=== PATIENT | female | born 1990 | race African-American/Black ===

== ENCOUNTER 2016-11-15 14:19 | Emergency (ER) | payer OTHER ==
[~2016-11-15] VITALS: Ht 170.2 cm; Wt 63.5 kg
[2016-11-15] MEDS ORDERED: ONDANSETRON PF 4 MG/2 ML VIAL. IV ONE ×2 (15:15→17:15)
[2016-11-15] MEDS ORDERED: IV NORMAL SALINE 1,000ML 1,000 ML IV ONE (15:15)
[2016-11-15] MEDS: MORPHINE SULFATE 2 MG/ML DISP.SYRIN. IV PRN ×2 (15:22→16:25)
[2016-11-15 15:26] LABS: BASO % 0 % (0-3); EOS % 0 % (0-3); HEMATOCRIT 39.3 % (36.0-47.0); HEMOGLOBIN 13.2 g/dL (12.0-15.5); LYMPH # 0.6 x10^3/uL (1.0-4.8); LYMPH % 9 % (24-48); MEAN CORPUSCULAR HEMOGLOBIN 31 pg (25-35); MEAN CORPUSCULAR HGB CONC 34 g/dL (31-37); MEAN CORPUSCULAR VOLUME 93 fL (79-100); MONO # 0.3 x10^3/uL (0.0-1.1); MONO % 4 % (0-9); NEUT # 5.8 x10^3uL (1.8-7.7); NEUT % 86 % (31-73); PLATELET COUNT 181 x10^3/uL (140-400); RED BLOOD COUNT 4.21 x10^6/uL (3.50-5.40); RED CELL DISTRIBUTION WIDTH 13.2 % (11.5-14.5); WHITE BLOOD COUNT 6.7 x10^3/uL (4.0-11.0)
[2016-11-15 15:29] LABS: BILIRUBIN,URINE NEG (NEG); CLARITY,URINE HAZY; COLOR,URINE YELLOW; GLUCOSE,URINE NEG (NEG); NITRITE,URINE NEG (NEG); UROBILINOGEN,URINE 1 mg/dL (0.2 mg/dL)
[2016-11-15 15:30] LABS: BACTERIA,URINE FEW /HPF (0-FEW); SQUAMOUS EPITHELIAL CELL,UR FEW /LPF
[2016-11-15 15:39] LABS: ALBUMIN 4.4 g/dL (3.4-5.0); ALBUMIN/GLOBULIN RATIO 1.2 (1.0-1.7); CALCIUM 9.4 mg/dL (8.5-10.1); CREATININE 0.9 mg/dL (0.6-1.0); GFR 93.1; TOTAL PROTEIN 8.2 g/dL (6.4-8.2)
[2016-11-15] MEDS ORDERED: IOHEXOL 300 MG/ML 75 ML VIAL. IV ONE (16:10)
--- NOTE | 2016-11-15 16:39 | RAD ---
CT scan of the abdomen and pelvis with contrast 11/15/2016 Clinical history: Severe right-sided abdominal pain with nausea and vomiting for 3 days. Technique: After the intravenous administration of 75 cc of Omnipaque 300, contiguous, 5 mm axial sections were obtained to the abdomen and pelvis. One or more of the following individualized dose reduction techniques were utilized for this study: 1. Automated exposure control. 2. Adjustment of the mA and/or kV according to patient size. 3. Use of iterative reconstruction technique. Findings: Images through the lung bases are within normal limits. The liver, spleen, pancreas, adrenal glands and kidneys are within normal limits. The abdominal aorta tapers normally. The gallbladder is well-distended. No free fluid or free air is seen within the abdomen. Mild air and fluid distention of both small and large bowel loops is seen without definite evidence of bowel obstruction. A moderate amount of stool is seen within the rectum and sigmoid colon. The appendix is partially visualized and is within normal limits. Images through the pelvis demonstrate the urinary bladder distended with urine. A 2 cm rounded low-attenuation structure is seen in the left adnexa. This likely represents a dominant follicle. No free fluid is seen. The osseous structures are grossly intact. Impression: No acute abnormality is seen.
[2016-11-15 17:02] VITALS: BP 100/50
[2016-11-15] MEDS ORDERED: ONDA4TAB10 SL (17:04)
--- NOTE | 2016-11-15 17:04 | PHYS DOC ---
Past History Past Medical History: Anemia Past Surgical History: Other Alcohol Use: None Drug Use: None Adult General Chief Complaint Chief Complaint: ABDOMINAL PAIN HPI HPI Patient is a 25 year old F who presents with upper abdominal pain that is dull and fluctuates in intensity. Her pain is associated with nausea and vomiting. She feels that her pain is worse with eating. She does not note alleviating factors. She does not have any other associated symptoms Review of Systems Review of Systems Constitutional: Denies fever or chills [] Eyes: Denies change in visual acuity, redness, or eye pain [] HENT: Denies nasal congestion or sore throat [] Respiratory: Denies cough or shortness of breath [] Cardiovascular: No additional information not addressed in HPI [] GI: Neg except HPI : Denies dysuria or hematuria [] Musculoskeletal: Denies back pain or joint pain [] Integument: Denies rash or skin lesions [] Neurologic: Denies headache, focal weakness or sensory changes [] Endocrine: Denies polyuria or polydipsia [] Family History Family History reviewed Current Medications Current Medications Current Medications Medications (Trade) Dose Ordered Sig/Kimberly Start Time Stop Time Status Last Admin Dose Admin Iohexol (Omnipaque 300 Mg/ml) 75 ml 1X ONCE 11/15/16 16:10 11/15/16 16:11 DC 11/15/16 16:06 75 ML Morphine Sulfate (Morphine 2mg Syringe) 2 mg PRN Q30MIN PRN 11/15/16 15:00 11/15/16 16:25 2 MG Ondansetron HCl (Zofran) 4 mg 1X ONCE 11/15/16 15:15 11/15/16 15:16 DC 11/15/16 15:15 4 MG Sodium Chloride 1,000 ml @ 1,000 mls/hr 1X ONCE 11/15/16 15:15 11/15/16 16:14 DC 11/15/16 15:15 1,000 MLS/HR Allergies Allergies Allergies Coded Allergies Type Severity Reaction Last Updated Verified ketorolac Allergy Unknown 11/15/16 Yes Physical Exam Physical Exam Constitutional: Well developed, well nourished, no acute distress, non-toxic appearance. [] HENT: Normocephalic, atraumatic, bilateral external ears normal, oropharynx moist, no oral exudates, nose normal. [] Eyes: PERRLA, EOMI, conjunctiva normal, no discharge. [] Neck: Normal range of motion, no tenderness, supple, no stridor. [] Cardiovascular:Heart rate regular rhythm, no murmur [] Lungs & Thorax: Bilateral breath sounds clear to auscultation [] Abdomen: Bowel sounds normal, soft, no masses, no pulsatile masses. [] Mild generalized TTP Skin: Warm, dry, no erythema, no rash. [] Back: No tenderness, no CVA tenderness. [] Extremities: No tenderness, no cyanosis, no clubbing, ROM intact, no edema. [] Neurologic: Alert and oriented X 3, normal motor function, normal sensory function, no focal deficits noted. [] Psychologic: Affect normal, judgement normal, mood normal. [] Current Patient Data Vital Signs Vital Signs Date Time Temp Pulse Resp B/P (MAP) Pulse Ox O2 Delivery O2 Flow Rate FiO2 11/15/16 16:25 18 Room Air 11/15/16 14:38 99.2 102 99 Lab Results Laboratory Tests Test 11/15/16 14:50 11/15/16 15:01 11/15/16 15:13 Urine Collection Type Unknown Urine Color Yellow Urine Clarity Hazy Urine pH 5.5 Urine Specific [place] 1.025 Urine Protein 30 mg/dl (NEG-TRACE) Urine Glucose (UA) Neg mg/dL (NEG) Urine Ketones (Stick) >=160 mg/dL (NEG) Urine Blood Small (NEG) Urine Nitrite Neg (NEG) Urine Bilirubin Neg (NEG) Urine Urobilinogen Dipstick 1 mg/dL (0.2 mg/dL) Urine Leukocyte Esterase Neg (NEG) Urine RBC 1-2 /HPF (0-2) Urine WBC 1-4 /HPF (0-4) Urine Squamous Epithelial Cells Few /LPF Urine Bacteria Few /HPF (0-FEW) Urine Mucus Marked /LPF POC Urine HCG, Qualitative hcg negative (Negative) White Blood Count 6.7 x10^3/uL (4.0-11.0) Red Blood Count 4.21 x10^6/uL (3.50-5.40) Hemoglobin 13.2 g/dL (12.0-15.5) Hematocrit 39.3 % (36.0-47.0) Mean Corpuscular Volume 93 fL (79-100) Mean Corpuscular Hemoglobin 31 pg (25-35) Mean Corpuscular Hemoglobin Concent 34 g/dL (31-37) Red Cell Distribution Width 13.2 % (11.5-14.5) Platelet Count 181 x10^3/uL (140-400) Neutrophils (%) (Auto) 86 % (31-73) H Lymphocytes (%) (Auto) 9 % (24-48) L Monocytes (%) (Auto) 4 % (0-9) Eosinophils (%) (Auto) 0 % (0-3) Basophils (%) (Auto) 0 % (0-3) Neutrophils # (Auto) 5.8 x10^3uL (1.8-7.7) Lymphocytes # (Auto) 0.6 x10^3/uL (1.0-4.8) L Monocytes # (Auto) 0.3 x10^3/uL (0.0-1.1) Eosinophils # (Auto) 0.0 x10^3/uL (0.0-0.7) Basophils # (Auto) 0.0 x10^3/uL (0.0-0.2) Sodium Level 138 mmol/L (136-145) Potassium Level 4.0 mmol/L (3.5-5.1) Chloride Level 103 mmol/L (98-107) Carbon Dioxide Level 24 mmol/L (21-32) Anion Gap 11 (6-14) Blood Urea Nitrogen 9 mg/dL (7-20) Creatinine 0.9 mg/dL (0.6-1.0) Estimated GFR (Cockcroft-Gault) 93.1 BUN/Creatinine Ratio 10 (6-20) Glucose Level 80 mg/dL (70-99) Lactic Acid Level 0.9 mmol/L (0.4-2.0) Calcium Level 9.4 mg/dL (8.5-10.1) Total Bilirubin 1.0 mg/dL (0.2-1.0) Aspartate Amino Transferase (AST) 13 U/L (15-37) L Alanine Aminotransferase (ALT) 13 U/L (14-59) L Alkaline Phosphatase 60 U/L (46-116) Total Protein 8.2 g/dL (6.4-8.2) Albumin 4.4 g/dL (3.4-5.0) Albumin/Globulin Ratio 1.2 (1.0-1.7) Lipase 73 U/L (73-393) Radiology/Procedures Radiology/Procedures CT abd/pelvis Impressions: Neg as read by radiology Course & Med Decision Making Course & Med Decision Making Pertinent Labs and Imaging studies reviewed. (See chart for details) Dragon Disclaimer Dragon Disclaimer This chart was dictated in whole or in part using Voice Recognition software in a busy, high-work load, and often noisy Emergency Department environment. It may contain unintended and wholly unrecognized errors or omissions. Departure Departure: Impression: Primary Impression: Gastroenteritis Disposition: HOME, SELF-CARE Condition: STABLE Referrals: PCPBILLY (PCP) Patient Instructions: Viral Gastroenteritis Additional Instructions: Clari was seen in the emergency room for abdominal pain, nausea and vomiting. No emergency medical condition was found on history or physical exam. She did have normal labs and imaging with the exception of protein in her urine. Her symptoms are most consistent with a gastroenteritis. She was given IV fluids and nausea medication. She was able to take oral fluids. She was advised to follow-up with her primary care doctor in the next 3-5 days for further management. She was advised to return to the emergency room if she develops new or worsening symptoms. Scripts Ondansetron (ZOFRAN ODT) 4 Mg Tab.rapdis 15 TAB SL Q8HRS, #15 TAB Prov: JAVON HAYES MD 11/15/16 JAVON HAYES MD Nov 15, 2016 17:04
== END 2016-11-15 17:17 | disposition home or self-care (01) ==
LOC: ER 14:19
DX: K52.9 Noninfective gastroenteritis and colitis, unspecified (principal); Z86.2 Personal history of diseases of the blood and blood-forming organs and certain disorders involving the immune mechanism; Z88.8 Allergy status to other drugs, medicaments and biological substances
CPT/HCPCS: 36415; 74177; 80053; 81001; 81025; 83605; 83690; 85025; 96361; 96374; 96375; 96376; 99285; J2270; J2405; Q9967; J7030

== ENCOUNTER 2017-02-28 02:29 | Emergency (ER) | payer OTHER ==
[~2017-02-28] VITALS: Ht 170.2 cm; Wt 63.5 kg
[~2017-02-28 02:29] MED LIST: ONDA4TAB10 SL
[2017-02-28 03:24] LABS: BARBITURATES NEG (NEG); BENZODIAZEPINES NEG (NEG); CANNABINOIDS POS (NEG); COCAINE POS (NEG); METHADONE NEG (NEG); OPIATES NEG (NEG); PHENCYCLIDINE NEG (NEG)
[2017-02-28 03:25] LABS: BILIRUBIN,URINE NEG (NEG); CLARITY,URINE HAZY; COLOR,URINE YELLOW; GLUCOSE,URINE NEG (NEG)
[2017-02-28 03:26] LABS: BACTERIA,URINE FEW /HPF (0-FEW); NITRITE,URINE NEG (NEG); RBC,URINE OCC /HPF (0-2); SQUAMOUS EPITHELIAL CELL,UR FEW /LPF; UROBILINOGEN,URINE 0.2 mg/dL (0.2 mg/dL)
[2017-02-28 03:27] LABS: ALBUMIN 4.3 g/dL (3.4-5.0); CALCIUM 8.9 mg/dL (8.5-10.1); DIRECT BILIRUBIN 0.1 mg/dL (0.0-0.2); GFR 81.7; POTASSIUM 3.4 mmol/L (3.5-5.1); TOTAL BILIRUBIN 0.3 mg/dL (0.2-1.0)
[2017-02-28] MEDS ORDERED: IV RINGERS SOLUTION,LACTATED 1,000 ML IV SCH (03:30)
[2017-02-28] MEDS ORDERED: oxyCODONE/APAP 5/325 1 TAB TABLET PO ONE (03:30)
[2017-02-28] MEDS ORDERED: ONDANSETRON PF 4 MG/2 ML VIAL. IV ONE (03:30)
[2017-02-28] MEDS ORDERED: FAMOTIDINE 20 MG/2 ML VIAL IVP ONE (03:30)
[2017-02-28 03:33] LABS: AMPHETAMINE/METHAMPHETAMINE NEG (NEG)
[2017-02-28] MEDS ORDERED: IV NORMAL SALINE 50ML 50 ML ONE (03:52)
[2017-02-28] MEDS ORDERED: cefTRIAXone SODIUM 1 GM VIAL IV ONE (03:52)
[2017-02-28 03:56] LABS: BASO % 0 % (0-3); EOS % 0 % (0-3); HEMATOCRIT 37.3 % (36.0-47.0); HEMOGLOBIN 12.6 g/dL (12.0-15.5); LYMPH % 16 % (24-48); MEAN CORPUSCULAR HEMOGLOBIN 32 pg (25-35); MEAN CORPUSCULAR HGB CONC 34 g/dL (31-37); MEAN CORPUSCULAR VOLUME 95 fL (79-100); MONO # 0.3 x10^3/uL (0.0-1.1); MONO % 5 % (0-9); NEUT # 4.9 x10^3uL (1.8-7.7); NEUT % 79 % (31-73); PLATELET COUNT 213 x10^3/uL (140-400); RED BLOOD COUNT 3.91 x10^6/uL (3.50-5.40); RED CELL DISTRIBUTION WIDTH 13.8 % (11.5-14.5); WHITE BLOOD COUNT 6.2 x10^3/uL (4.0-11.0)
--- NOTE | 2017-02-28 04:21 | ED.ADGEN ---
Past History Past Medical History: Anemia Past Surgical History: Other Alcohol Use: None Drug Use: None Adult General Chief Complaint Chief Complaint ".. I have chills, fever.. and diarrhea...nauseated..bad.." HPI HPI Patient is a 26 year old female who presents with above complaints of generalized malaise, myalgia, diarrhea x 3 tonight and fever. Pt. is travel or ill contacts. Patient denies any intake of bad food. She has not taken a flu shot this year. Review of Systems Review of Systems Constitutional: Hx fever or chills [] Eyes: Denies change in visual acuity, redness, or eye pain [] HENT: Hx. nasal congestion or sore throat [] Respiratory: Denies cough or shortness of breath [] Cardiovascular: No additional information not addressed in HPI [] GI: Hx. abdominal pain, nausea, & diarrhea [] : Denies dysuria or hematuria [] Musculoskeletal: Denies back pain or joint pain [] Integument: Denies rash or skin lesions [] Neurologic: Denies headache, focal weakness or sensory changes [] Endocrine: Denies polyuria or polydipsia [] All other systems were reviewed and found to be within normal limits, except as documented in this note. Family History Family History Non- contributory Current Medications Current Medications Current Medications Medications (Trade) Dose Ordered Sig/Kimberly Start Time Stop Time Status Last Admin Dose Admin Ceftriaxone Sodium 1 gm/ Sodium Chloride 50 ml @ 100 mls/hr 1X ONCE 02/28/17 04:30 02/28/17 05:00 DC 02/28/17 03:50 100 MLS/HR Ceftriaxone Sodium (Rocephin) 1 gm STK-MED ONCE 02/28/17 03:52 02/28/17 03:53 DC Famotidine (Pepcid Vial) 20 mg 1X ONCE 02/28/17 03:30 02/28/17 03:31 DC 02/28/17 03:19 20 MG Lactated Ringer's 1,000 ml @ 1,000 mls/hr Q1H 02/28/17 03:30 02/28/17 03:30 DC 02/28/17 03:19 1,000 MLS/HR Ondansetron HCl (Zofran) 4 mg 1X ONCE 02/28/17 03:30 02/28/17 03:31 DC 02/28/17 03:19 4 MG Oxycodone/ Acetaminophen (Percocet 5/325) 2 tab 1X ONCE 02/28/17 03:30 02/28/17 03:31 DC 02/28/17 03:19 2 TAB Sodium Chloride 50 ml @ As Directed STK-MED ONCE 02/28/17 03:52 02/28/17 03:53 DC See Nursing form home meds Allergies Allergies Allergies Coded Allergies Type Severity Reaction Last Updated Verified ketorolac Allergy Intermediate 02/28/17 Yes Physical Exam Physical Exam Constitutional: Well developed, well nourished, moderate distress, non-toxic appearance. [] HENT: Normocephalic, atraumatic, bilateral external ears normal, oropharynx dry , no oral exudates, nose normal. [] Eyes: PERRLA, EOMI, conjunctiva normal, no discharge. [] Neck: Normal range of motion, no tenderness, supple, no stridor. [] Cardiovascular:Heart rate regular rhythm, no murmur [] Lungs & Thorax: Bilateral breath sounds equal with scattered wheezes auscultation [] Abdomen: Bowel sounds hyperactive, soft, no tenderness, no masses, no pulsatile masses. [] Skin: Warm, dry, no erythema, no rash. [] Back: No tenderness, no CVA tenderness. [] Extremities: No tenderness, no cyanosis, no clubbing, ROM intact, no edema. No psoas or obturator sign Neurologic: Alert and oriented X 3, normal motor function, normal sensory function, no focal deficits noted. [] Psychologic: Affect anxious, judgement normal, mood normal. [] Current Patient Data Vital Signs Vital Signs Date Time Temp Pulse Resp B/P (MAP) Pulse Ox O2 Delivery O2 Flow Rate FiO2 02/28/17 04:32 93 16 113/70 (84) 99 Room Air 02/28/17 02:29 97.8 Lab Results Laboratory Tests Test 02/28/17 02:35 02/28/17 02:52 02/28/17 02:57 Urine Collection Type Unknown Urine Color Yellow Urine Clarity Hazy Urine pH 5.5 Urine Specific [place] <=1.005 Urine Protein Neg (NEG-TRACE) Urine Glucose (UA) Neg mg/dL (NEG) Urine Ketones (Stick) Neg mg/dL (NEG) Urine Blood Trace (NEG) Urine Nitrite Neg (NEG) Urine Bilirubin Neg (NEG) Urine Urobilinogen Dipstick 0.2 mg/dL (0.2 mg/dL) Urine Leukocyte Esterase Large (NEG) Urine RBC Occ /HPF (0-2) Urine WBC 11-20 /HPF (0-4) Urine Squamous Epithelial Cells Few /LPF Urine Bacteria Few /HPF (0-FEW) Urine Opiates Screen Neg (NEG) Urine Methadone Screen Neg (NEG) Urine Barbiturates Neg (NEG) Urine Phencyclidine Screen Neg (NEG) Urine Amphetamine/Methamphetamine Neg (NEG) Urine Benzodiazepines Screen Neg (NEG) Urine Cocaine Screen Pos (NEG) Urine Cannabinoids Screen Pos (NEG) Urine Ethyl Alcohol Pos (NEG) White Blood Count 6.2 x10^3/uL (4.0-11.0) Red Blood Count 3.91 x10^6/uL (3.50-5.40) Hemoglobin 12.6 g/dL (12.0-15.5) Hematocrit 37.3 % (36.0-47.0) Mean Corpuscular Volume 95 fL (79-100) Mean Corpuscular Hemoglobin 32 pg (25-35) Mean Corpuscular Hemoglobin Concent 34 g/dL (31-37) Red Cell Distribution Width 13.8 % (11.5-14.5) Platelet Count 213 x10^3/uL (140-400) Neutrophils (%) (Auto) 79 % (31-73) H Lymphocytes (%) (Auto) 16 % (24-48) L Monocytes (%) (Auto) 5 % (0-9) Eosinophils (%) (Auto) 0 % (0-3) Basophils (%) (Auto) 0 % (0-3) Neutrophils # (Auto) 4.9 x10^3uL (1.8-7.7) Lymphocytes # (Auto) 1.0 x10^3/uL (1.0-4.8) Monocytes # (Auto) 0.3 x10^3/uL (0.0-1.1) Eosinophils # (Auto) 0.0 x10^3/uL (0.0-0.7) Basophils # (Auto) 0.0 x10^3/uL (0.0-0.2) Sodium Level 142 mmol/L (136-145) Potassium Level 3.4 mmol/L (3.5-5.1) L Chloride Level 105 mmol/L (98-107) Carbon Dioxide Level 21 mmol/L (21-32) Anion Gap 16 (6-14) H Blood Urea Nitrogen 7 mg/dL (7-20) Creatinine 1.0 mg/dL (0.6-1.0) Estimated GFR (Cockcroft-Gault) 81.7 Glucose Level 106 mg/dL (70-99) H Calcium Level 8.9 mg/dL (8.5-10.1) Total Bilirubin 0.3 mg/dL (0.2-1.0) Direct Bilirubin 0.1 mg/dL (0.0-0.2) Aspartate Amino Transferase (AST) 13 U/L (15-37) L Alanine Aminotransferase (ALT) 17 U/L (14-59) Alkaline Phosphatase 57 U/L (46-116) Total Protein 8.0 g/dL (6.4-8.2) Albumin 4.3 g/dL (3.4-5.0) Lipase 79 U/L (73-393) Influenza Type A (Rapid) Negative (NEGATIVE) Influenza Type B (Rapid) Negative (NEGATIVE) Group A Streptococcus Rapid Negative (NEGATIVE) EKG EKG [] Radiology/Procedures Radiology/Procedures [] Course & Med Decision Making Course & Med Decision Making Pertinent Labs and Imaging studies reviewed. (See chart for details) Push clear fluids and vit. C drinks. Tylenol and Ibuprofen for pain and fever. Only clear fluids x 48 hrs. No solids. No mild products. Follow up with primary. Zofran 8 mg up 4 x day for nausea. Keflex 500 three times a day x 7 days. [] Final Impression Final Impression 1. Gastroenteritis 2. UTI 3. Polysubstance abuse[] Problems: Dragon Disclaimer Dragon Disclaimer This electronic medical record was generated, in whole or in part, using a voice recognition dictation system. FABBY HOWE MD Feb 28, 2017 04:21
[2017-02-28] MEDS ORDERED: CEPH-264 PO (04:28)
[2017-02-28] MEDS ORDERED: ONDA8TAB12 PO (04:28)
[2017-02-28 04:32] VITALS: BP 113/70
[2017-02-28 05:02] LABS: INFLUENZA A PATIENT NEGATIVE (NEGATIVE); INFLUENZA B PATIENT NEGATIVE (NEGATIVE)
== END 2017-02-28 04:37 | disposition home or self-care (01) ==
LOC: ER 02:29
DX: K52.9 Noninfective gastroenteritis and colitis, unspecified (principal); N39.0 Urinary tract infection, site not specified; F19.10 Other psychoactive substance abuse, uncomplicated; Z88.4 Allergy status to anesthetic agent
CPT/HCPCS: 36415; 80048; 80076; 80307; 81001; 81025; 83690; 85025; 87070; 87086; 87186; 87804; 87880; 96361; 96365; 96375; 99284; J0696; J2405; J7120; S0028; G0479

== ENCOUNTER 2017-03-05 10:34 | Emergency (ER) | payer OTHER ==
[~2017-03-05] VITALS: Ht 170.2 cm; Wt 63.5 kg
[~2017-03-05 10:34] MED LIST changes: +CEPH-264 PO; +ONDA8TAB12 PO
[2017-03-05] MEDS ORDERED: TETANUS AND DIPHTHERIA TOX/PF 0.5 ML VIAL. VAX IM ONE (11:30)
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
[2017-03-05] MEDS ORDERED: ACETAMINOPHEN/CODEINE 300/30MG TABLET PO ONE (13:00)
[2017-03-05 13:20] VITALS: BP 113/59
[2017-03-05] MEDS ORDERED: percogesic (13:20)
== END 2017-03-05 13:40 | disposition home or self-care (01) ==
LOC: ER 10:34 → EEVIPCON 10:34 → ER 13:40
DX: S61.214A Laceration without foreign body of right ring finger without damage to nail, initial encounter (principal); S71.111A Laceration without foreign body, right thigh, initial encounter; R51 Headache; F17.210 Nicotine dependence, cigarettes, uncomplicated; F12.10 Cannabis abuse, uncomplicated; F14.10 Cocaine abuse, uncomplicated; Z88.8 Allergy status to other drugs, medicaments and biological substances; Z86.2 Personal history of diseases of the blood and blood-forming organs and certain disorders involving the immune mechanism; Y04.0XXA Assault by unarmed brawl or fight, initial encounter; Y93.89 Activity, other specified; Y99.8 Other external cause status; Y92.090 Kitchen in other non-institutional residence as the place of occurrence of the external cause
CPT/HCPCS: 12001; 70450; 72125; 73140; 81025; 90471; 90714; 99284-25

== ENCOUNTER 2017-05-31 12:30 | Emergency (ER) | payer OTHER ==
[~2017-05-31] VITALS: Ht 170.2 cm; Wt 63.5 kg
[~2017-05-31 12:30] MED LIST changes: +percogesic
[2017-05-31] MEDS ORDERED: IV NORMAL SALINE 1,000ML 1,000 ML IV SCH (13:35)
[2017-05-31 13:44] LABS: BILIRUBIN,URINE NEG (NEG); CLARITY,URINE CLOUDY; COLOR,URINE STRAW; GLUCOSE,URINE NEG (NEG); NITRITE,URINE NEG (NEG); RBC,URINE RARE /HPF (0-2); UROBILINOGEN,URINE 0.2 mg/dL (0.2 mg/dL)
[2017-05-31 13:45] LABS: BACTERIA,URINE MOD /HPF (0-FEW); SQUAMOUS EPITHELIAL CELL,UR MANY /LPF
[2017-05-31] MEDS ORDERED: PROMETHAZINE 25 MG in IV NORMAL SALINE 50ML 50 ML IV PRN (13:45)
[2017-05-31 13:51] LABS: AMPHETAMINE/METHAMPHETAMINE NEG (NEG); BARBITURATES NEG (NEG); BENZODIAZEPINES NEG (NEG); CANNABINOIDS POS (NEG); COCAINE NEG (NEG); METHADONE NEG (NEG); OPIATES NEG (NEG); PHENCYCLIDINE NEG (NEG)
[2017-05-31 13:53] LABS: INFLUENZA A PATIENT NEGATIVE (NEGATIVE); INFLUENZA B PATIENT NEGATIVE (NEGATIVE)
[2017-05-31 13:56] LABS: HEMOGLOBIN ISTAT 13.9 gm/dL; POTASSIUM ISTAT 4.3 mmol/L (3.5-5.0)
--- NOTE | 2017-05-31 13:56 | PHYS DOC ---
General Chief Complaint: HEADACHE Stated Complaint: HEADACE Time Seen by MD: 12:33 Source: patient Exam Limitations: no limitations Problems: History of Present Illness Initial Comments 26-year-old female comes to the ED complaining of diarrhea headache. Patient states that 3 days ago she developed nausea but no vomiting with generalized abdominal cramping. Since that time she's had multiple loose watery stools daily, no blood noted in stools. No travel or bad food exposure, she's been trying to keep up with hydration drinking Nolberto-Aid. Today she's had a severe global headache worse when standing with some photophobia. No migraine history no photophobia or scotoma no focal neurologic deficits or vision changes. ED vital signs are normal. Timing/Duration: other Severity: moderate Modifying Factors: worse with eating, worse with movement, improves with rest Associated Symptoms: headaches, malaise, nausea/vomiting, other Allergies: Coded Allergies: tramadol (Verified Allergy, Severe, rash, 05/31/17) ketorolac (Verified Allergy, Intermediate, 02/28/17) Past Medical History Medical History: other (anemia, UTI) Surgical History: noncontributory Social History Smoker: cigarettes Alcohol: occasionally Drugs: cocaine, marijuana Review of Systems Constitutional: denies chills, denies diaphoresis, denies fever, malaise Respiratory: denies cough, denies shortness of breath Cardiovascular: denies chest pain, denies palpitations Gastrointestinal: see HPI, denies constipation, denies vomiting Genitourinary: denies discharge, denies dysuria, frequency, denies hematuria Musculoskeletal: denies joint swelling, denies neck pain Psychiatric/Neurological: headache, denies numbness, denies paresthesia, denies weakness Physical Exam General Appearance: WD/WN, no apparent distress Eyes: bilateral eye normal inspection, bilateral eye PERRL, bilateral eye EOMI Ear, Nose, Throat: hearing grossly normal, normal ENT inspection (dry mucous membranes), normal pharynx Neck: non-tender, supple Respiratory: lungs clear, normal breath sounds Cardiovascular: normal peripheral pulses, regular rate, rhythm Gastrointestinal: soft (suprapubic tenderness without rebound guarding or mass negative Gifford negative McBurney otherwise abdomen is soft nondistended bowel sounds are normal) Back: no vertebral tenderness, CVA tenderness (L) Extremities: normal range of motion, non-tender, normal inspection 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, no motor/sensory deficits, alert, normal mood/affect, oriented x 3 Skin: pallor (with poor turgor) Orders, Labs, Meds Basic by i-STAT unremarkable Influenza negative Urine negative Urinalysis: Many squamous epithelial, 11-20 WBCs, trace LE UDS positive for cannabinoids Impressions: Left pyelonephritis Hypovolemia Headache secondary to #2 Tobaccoism Marijuana abuse Departure Time of Disposition: 13:59 Disposition: 01 HOME, SELF-CARE Diagnosis: left pyelonephritis, hypovolemia, headache 2nd to Condition: IMPROVED Patient Instructions: Marijuana Abuse-Brief, Pyelonephritis, Adult, Easy-to- Read, Smoking Cessation, Tips For Success Additional Instructions: Please review the patient education materials given by ED staff. Aggressive hydration with Gatorade and water. Discontinue substance abuse, seek medical assistance if necessary. Ibfo-[id number] probiotics or cultured yogurt (danimals, gogurt) daily to replace normal intestinal milagro. Prescription: Cipro 500 mg, Zofran ODT, Pyridium Follow-up with your doctor in 10-14 days for recheck and review urine culture results. Return to ED with new or changing symptoms. ROMERO CUETO DO May 31, 2017 13:56
[2017-05-31] MEDS ORDERED: MORPHINE SULFATE 4 MG/ML DISP.SYRIN. IV ONE (14:00)
[2017-05-31] MEDS ORDERED: diphenhydrAMINE 50 MG/ML VIAL IVP ONE (14:00)
[2017-05-31] MEDS ORDERED: IV NORMAL SALINE 50ML 50 ML ONE (14:03)
[2017-05-31] MEDS ORDERED: PROMETHAZINE 25 MG/ML VIAL IV ONE (14:04)
[2017-05-31] MEDS ORDERED: CIPR500T94 PO (14:10)
[2017-05-31] MEDS ORDERED: PHEN100T82 PO (14:10)
[2017-05-31] MEDS ORDERED: ONDA4TAB10 PO (14:10)
[2017-05-31] MEDS ORDERED: cefTRIAXone IV Push 1 GM VIAL. IVP ONE (14:15)
[2017-05-31 14:45] VITALS: BP 122/46
== END 2017-05-31 15:00 | disposition home or self-care (01) ==
LOC: ER 12:30
DX: N12 Tubulo-interstitial nephritis, not specified as acute or chronic (principal); E86.1 Hypovolemia; R51 Headache; F17.210 Nicotine dependence, cigarettes, uncomplicated; F12.10 Cannabis abuse, uncomplicated; F14.10 Cocaine abuse, uncomplicated; Z87.440 Personal history of urinary (tract) infections; Z88.6 Allergy status to analgesic agent; Z88.8 Allergy status to other drugs, medicaments and biological substances
CPT/HCPCS: 36415; 80047; 80307; 81001; 81025; 87086; 87804; 96365; 96375; 99284; J0696; J1200; J2270; J2550; G0479; J7030

== ENCOUNTER 2017-06-12 16:58 | Emergency (ER) | payer OTHER ==
[~2017-06-12] VITALS: Ht 170.2 cm; Wt 63.5 kg
[~2017-06-12 16:58] MED LIST changes: +CIPR500T94 PO; +ONDA4TAB10 PO; +PHEN100T82 PO
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
[2017-06-12] MEDS ORDERED: oxyCODONE/APAP 5/325 1 TAB TABLET PO ONE (19:00)
[2017-06-12 19:15] VITALS: BP 106/58
== END 2017-06-12 19:29 | disposition home or self-care (01) ==
LOC: EEVIPCON 16:58 → ER 16:58
DX: S02.2XXA Fracture of nasal bones, initial encounter for closed fracture (principal); S00.83XA Contusion of other part of head, initial encounter; M54.2 Cervicalgia; F17.210 Nicotine dependence, cigarettes, uncomplicated; F12.10 Cannabis abuse, uncomplicated; F14.10 Cocaine abuse, uncomplicated; Z87.440 Personal history of urinary (tract) infections; Z86.2 Personal history of diseases of the blood and blood-forming organs and certain disorders involving the immune mechanism; Z88.6 Allergy status to analgesic agent; Y04.0XXA Assault by unarmed brawl or fight, initial encounter; Y93.89 Activity, other specified; Y92.89 Other specified places as the place of occurrence of the external cause; Y99.8 Other external cause status
CPT/HCPCS: 70450; 70486; 72125; 81025; 99284-25

== ENCOUNTER 2017-10-11 01:22 | Emergency (ER) | payer OTHER ==
[~2017-10-11] VITALS: Ht 172.7 cm; Wt 61.2 kg
--- NOTE | 2017-10-11 02:04 | PHYS DOC ---
Past History Past Medical History: No Pertinent History Past Surgical History: No Surgical History Smoking: Cigarettes Alcohol Use: None Drug Use: Marijuana Adult General Chief Complaint Chief Complaint: FATIGUE, Abdominal pain HPI HPI Patient is a 26 yo female that presents to the emergency department complaining of nausea, vomiting and abdominal pain. She said that she has been having the nausea and abdominal pain for the past week but that the vomiting then started today. She describes the pain as "a bad period" and said that it is located diffusely in her lower abdomen. She rates her pain as 7/10 in severity and nothing improves or worsens her symptoms. The patient mentioned that she has irregular periods and that her last period was in the first week of the month and lasted for 3 days. She also mentioned that she is anemic. Patient does report being around a coworker who was also sick. Review of Systems Review of Systems Constitutional: Denies fever. Complains of "cold sweats".[] Eyes: Denies change in visual acuity, redness, or eye pain [] HENT: Denies nasal congestion or sore throat [] Respiratory: Denies cough or shortness of breath [] Cardiovascular: Denies chest pain and palpitations [] GI: Endorses abdominal pain, nausea, vomiting and diarrhea [] : Denies dysuria or hematuria [] Musculoskeletal: Denies back pain or joint pain [] Neurologic: Denies headache, focal weakness or sensory changes [] Complete systems were reviewed and found to be within normal limits, except as documented in this note. Current Medications Current Medications Current Medications Medications (Trade) Dose Ordered Sig/Kimberly Start Time Stop Time Status Last Admin Dose Admin Dicyclomine HCl (Bentyl) 10 mg 1X ONCE 10/11/17 01:45 10/11/17 01:46 UNV Famotidine (Pepcid Vial) 20 mg 1X ONCE 10/11/17 01:45 10/11/17 01:46 UNV Ondansetron HCl (Zofran) 4 mg 1X ONCE 10/11/17 01:45 10/11/17 01:46 UNV Sodium Chloride 1,000 ml @ 1,000 mls/hr 1X ONCE 10/11/17 01:45 10/11/17 02:44 UNV Allergies Allergies Allergies Coded Allergies Type Severity Reaction Last Updated Verified tramadol Allergy Severe rash 05/31/17 Yes ketorolac Allergy Intermediate 02/28/17 Yes Physical Exam Physical Exam Constitutional: Well developed, well nourished, no acute distress, non-toxic appearance. [] HENT: Normocephalic, atraumatic, bilateral external ears normal, oropharynx moist, no oral exudates, nose normal. [] Eyes: PERRL, EOMI. [] Neck: Normal range of motion, no tenderness, supple, no stridor. [] Cardiovascular:Heart rate regular rhythm, no murmur [] Lungs & Thorax: Bilateral breath sounds clear to auscultation [] Abdomen: Bowel sounds normal, soft, no tenderness, no masses, no pulsatile masses. [] Skin: Warm, dry, no erythema, no rash. [] Back: No tenderness, no CVA tenderness. [] Extremities: No tenderness, no cyanosis, no clubbing, ROM intact, no edema. [] Neurologic: Alert and oriented X 3, normal motor function, normal sensory function, no focal deficits noted. [] Psychologic: Affect normal, judgement normal, mood normal. [] Current Patient Data Vital Signs Vital Signs Date Time Temp Pulse Resp B/P (MAP) Pulse Ox O2 Delivery O2 Flow Rate FiO2 10/11/17 01:30 98.8 98 16 99 Room Air EKG EKG NSR at 78bpm, NO ST elevation. 10/11/17 at 0151 Radiology/Procedures Radiology/Procedures [] Course & Med Decision Making Course & Med Decision Making Pertinent Labs and Imaging studies reviewed. (See chart for details) Patient is a 26 yo female that presents to the emergency department complaining of nausea, vomiting and abdominal pain. She said that she has been having the nausea and abdominal pain for the past week but that the vomiting then started today. She describes the pain as "a bad period" and said that it is located diffusely in her lower abdomen. She rates her pain as 7/10 in severity and nothing improves or worsens her symptoms. The patient mentioned that she has irregular periods and that her last period was in the first week of the month and lasted for 3 days. While in the ED, the patient was given Bentyl, Pepcid, Zofran and a liter of normal saline. Labs were drawn and posted to chart. Mild renal insufficiency noted. Patient stable for discharge with outpatient follow- up with PCP/GI. Discussed findings and plan with patient, who acknowledges understanding and agreement. Landon Disclaimer Dragon Disclaimer This electronic medical record was generated, in whole or in part, using a voice recognition dictation system. Departure Departure: Impression: Primary Impression: Abdominal pain Additional Impression: Renal insufficiency Disposition: HOME, SELF-CARE Condition: STABLE Referrals: PCP,NO (PCP) Patient Instructions: Abdominal Pain, [id number], Nausea and Vomiting, Easy- to-Read Scripts Famotidine (PEPCID) 20 Mg Tablet 1 TAB PO BID, #30 TAB 0 Refills Prov: GEORGI MCNAMARA DO 10/11/17 Ondansetron Hcl (ZOFRAN) 4 Mg Tablet 1 TAB PO Q8HRS for NAUSEA, #14 TAB Prov: GEORGI MCNAMARA DO 10/11/17 Problem Qualifiers Primary Impression: Abdominal pain Abdominal location: unspecified location Qualified Codes: R10.9 - Unspecified abdominal pain GEORGI MCNAMARA DO Oct 11, 2017 02:04
[2017-10-11] MEDS ORDERED: FAMO-63 PO (02:10)
[2017-10-11] MEDS ORDERED: ONDA4TAB7 PO (02:10)
[2017-10-11 02:26] LABS: BASO % 1 % (0-3); EOS # 0.1 x10^3/uL (0.0-0.7); EOS % 1 % (0-3); HEMATOCRIT 36.9 % (36.0-47.0); HEMOGLOBIN 12.4 g/dL (12.0-15.5); LYMPH # 1.1 x10^3/uL (1.0-4.8); LYMPH % 22 % (24-48); MEAN CORPUSCULAR HEMOGLOBIN 33 pg (25-35); MEAN CORPUSCULAR HGB CONC 34 g/dL (31-37); MEAN CORPUSCULAR VOLUME 97 fL (79-100); MONO # 0.2 x10^3/uL (0.0-1.1); MONO % 5 % (0-9); NEUT # 3.5 x10^3uL (1.8-7.7); NEUT % 72 % (31-73); PLATELET COUNT 229 x10^3/uL (140-400); RED BLOOD COUNT 3.79 x10^6/uL (3.50-5.40); RED CELL DISTRIBUTION WIDTH 13.5 % (11.5-14.5); WHITE BLOOD COUNT 4.9 x10^3/uL (4.0-11.0)
[2017-10-11] MEDS ORDERED: ONDANSETRON PF 4 MG/2 ML VIAL. IV ONE (02:30)
[2017-10-11] MEDS ORDERED: FAMOTIDINE 20 MG/2 ML VIAL IVP ONE (02:30)
[2017-10-11] MEDS ORDERED: IV NORMAL SALINE 1,000ML 1,000 ML IV ONE (02:30)
[2017-10-11] MEDS ORDERED: DICYCLOMINE 20 MG/2 ML AMPUL. IM ONE (02:30)
[2017-10-11 02:39] LABS: ALBUMIN 4.1 g/dL (3.4-5.0); ALBUMIN/GLOBULIN RATIO 1.2 (1.0-1.7); CALCIUM 8.9 mg/dL (8.5-10.1); CREATININE 1.2 mg/dL (0.6-1.0); GFR 66.2; MAGNESIUM 2.4 mg/dL (1.8-2.4); POTASSIUM 3.8 mmol/L (3.5-5.1); TOTAL BILIRUBIN 0.4 mg/dL (0.2-1.0); TOTAL PROTEIN 7.5 g/dL (6.4-8.2)
[2017-10-11 03:07] LABS: BACTERIA,URINE 0 /HPF (0-FEW); BILIRUBIN,URINE NEG (NEG); CLARITY,URINE CLEAR; COLOR,URINE YELLOW; GLUCOSE,URINE NEG (NEG); NITRITE,URINE NEG (NEG); RBC,URINE 0 /HPF (0-2); SQUAMOUS EPITHELIAL CELL,UR OCC /LPF; UROBILINOGEN,URINE 0.2 mg/dL (0.2 mg/dL); WBC,URINE RARE /HPF (0-4)
[2017-10-11 03:09] LABS: AMPHETAMINE/METHAMPHETAMINE NEG (NEG); BARBITURATES NEG (NEG); BENZODIAZEPINES NEG (NEG); CANNABINOIDS POS (NEG); COCAINE POS (NEG); METHADONE NEG (NEG); OPIATES NEG (NEG); PHENCYCLIDINE NEG (NEG)
[2017-10-11] MEDS ORDERED: DICY20TA3 PO (03:16)
[2017-10-11 03:45] VITALS: BP 100/63
--- NOTE | 2017-10-11 06:27 | EKG ---
[address] [address] Test Date: 2017-10-11 Test Time: 01:51:16 Pat Name: EPHRAIM FRAUSTO Department: Room: Gender: F System Validation Engineer: JON : 1990 Requested By: GEORGI MCNAMARA Order Number: [id number] Reading MD: Measurements Intervals [place] Rate: 78 P: 61 MT: 120 QRS: 75 QRSD: 82 T: 68 QT: 368 QTc: 423 Interpretive Statements SINUS RHYTHM QRS(T) CONTOUR ABNORMALITY CONSIDER ANTEROSEPTAL MYOCARDIAL DAMAGE POSSIBLY ABNORMAL ECG RI6.01 No previous ECG available for comparison
== END 2017-10-11 03:52 | disposition home or self-care (01) ==
LOC: ER 01:22
DX: N28.9 Disorder of kidney and ureter, unspecified (principal); F17.210 Nicotine dependence, cigarettes, uncomplicated; Z88.6 Allergy status to analgesic agent; Z88.8 Allergy status to other drugs, medicaments and biological substances
CPT/HCPCS: 36415; 80053; 80307; 81001; 81025; 83690; 83735; 85025; 93005; 96361; 96372; 96374; 96375; 99285; J0500; J2405; S0028; G0479; J7030